=== PATIENT | female | born 1995 | race Caucasian/White ===

== ENCOUNTER 2022-12-30 14:34 | Outpatient (CLI) | payer OTHER, SELFPAY ==
[2022-12-30 18:25] LABS: Hepatitis B Surface Antigen* Negative (Negative)
[2022-12-30 18:36] LABS: HIV 1/2/P24 Combo Screen* Negative (Negative)
[2022-12-30 18:43] LABS: Hepatitis C Virus Antibody* Negative (Negative)
[2022-12-30 20:56] LABS: Chlamydia DNA Amplified* NOT DETECTED (No Detected); GC DNA Amplified* NOT DETECTED (No Detected)
[2023-01-02 02:25] LABS: Rapid Plasma Reagin (RPR) Non Reactive (Non Reactive)
[2023-01-02 02:35] LABS: Varicella-Zoster Virus Ab, IgG 509.9 IV
== END 2022-12-30 14:35 | disposition home or self-care (01) ==
PROVIDERS: Visit Provider Physician Assistant
DX: Z34.91 Encounter for supervision of normal pregnancy, unspecified, first trimester (principal); Z3A.11 11 weeks gestation of pregnancy
CPT/HCPCS: 86592; 86703; 86762; 86787; 86803; 86850; 86900; 86901; 87086; 87340; 87491; 87591

== ENCOUNTER 2023-01-28 16:13 | Outpatient (CLI) | payer OTHER, SELFPAY | END 2023-01-28 16:14 | disposition home or self-care (01) | LOC: NFLDREF 16:14 | PROVIDERS: Visit Provider Obstetrics & Gynecology | DX: Z34.92 Encounter for supervision of normal pregnancy, unspecified, second trimester (principal); Z3A.16 16 weeks gestation of pregnancy | CPT/HCPCS: 85461; J2791 ==

== ENCOUNTER 2023-03-02 12:48 | Outpatient (CLI) | payer OTHER, SELFPAY ==
--- NOTE | 2023-03-02 13:00 | CRLHL7_ITS ---
For Patients: As a result of the Century Cures Act, medical imaging exams and procedure reports are released immediately into your electronic medical record. You may view this report before your referring provider. If you have questions, please contact your health care provider. INDICATION: Evaluate anatomy. COMPARISON: none TECHNIQUE: Real time palacios scale imaging of the fetus was performed as well as color Doppler analysis of the umbilical vessels. FINDINGS: Sonographic imaging demonstrates a single living intrauterine gestation. Fetus demonstrates a regular cardiac rate of 143 beats per minute. Fetus has a cephalic position. The placenta lies anteriorly without evidence of placenta previa. The edge of the placenta is located 5.2 cm from the internal cervical os. Amniotic fluid volume appears normal. Single deepest vertical pocket: 5.1 cm. The cervix is closed and measures 4.0 cm in length. The composite ultrasound gestational age is calculated at 20 weeks 3 days with an estimated sonographic due date of 07/10/2023. The estimated weight is 392 grams which lies at the 61st %. The following biometric measurements were obtained: Biparietal diameter: 5.2 cm/21 weeks 6 days 88th% Head circumference: 19.5 cm/21 weeks 5 days 83rd% Abdominal circumference: 16.0 cm/21 weeks 1 day 56th% Femur length: 3.4 cm/20 weeks 5 days 39th% The HC/AC ratio measures: 1.2 to range (1.06-1.24) On anatomic survey, there is a normal appearance of the cerebral ventricles, cavum septi pellucidi, cisterna magna and cerebellum. The nose, lips, and facial profile appear normal. The cervical, thoracic and lumbar spine are well visualized and appear normal. There is a normal four-chamber heart view and the left and right ventricular outflow tracts appear normal. The diaphragm and stomach appear normal. The kidneys and bladder also appear normal. There is a normal three-vessel cord and eccentric cord insertion site. The four extremities appear normal. IMPRESSION: Concordance of clinical and sonographic dating. No intrinsic abnormalities noted on anatomic survey. Dictated by aHrdy Holm MD @ 03/03/2023 11:45:11 AM (Electronically Signed)
== END 2023-03-02 12:49 | disposition home or self-care (01) ==
LOC: US 12:49
PROVIDERS: Visit Provider Obstetrics & Gynecology
DX: Z34.92 Encounter for supervision of normal pregnancy, unspecified, second trimester (principal); Z3A.20 20 weeks gestation of pregnancy
CPT/HCPCS: 76805

== ENCOUNTER 2023-06-19 13:46 | Outpatient (CLI) | payer OTHER, SELFPAY | END 2023-06-19 13:47 | disposition home or self-care (01) | LOC: NFLDREF 06-22 11:24 | PROVIDERS: Visit Provider Obstetrics & Gynecology | DX: Z34.93 Encounter for supervision of normal pregnancy, unspecified, third trimester (principal); Z3A.36 36 weeks gestation of pregnancy; Z36.85 Encounter for antenatal screening for Streptococcus B | CPT/HCPCS: 87081; 87653 ==

== ENCOUNTER 2023-07-19 15:45 | Inpatient (IN) | payer OTHER, SELFPAY ==
[2023-07-19 12:08] VITALS: BP 126/84; PULSE 88
[2023-07-19 15:50] VITALS: BP 138/85; PULSE 86
--- NOTE | 2023-07-19 16:05 | P.OBHP_ITS ---
OB - H&P: HPI Labor/Induction History of Present Illness Time Seen by Provider: 16:05 Date Seen: 07/19/23 Chief Complaint: The patient is a 28-year-old white female 1 para 0 who presents at 40 and 4 7th weeks gestation by last menstrual. An 8 week ultrasound with complaint of uterine contractions since 2:00 a.m.. Uterine contractions started slowly but now every 2 minutes. Patient denies any spontaneous rupture of membranes. No bloody show. Baby is moving. Patient states that her antepartum course has been totally unremarkable. She is GBS negative. Past medical history: None. Past surgical history: None. Medicines: None. Allergies: None. Social history: No smoke or drink or drugs. Tiny history: No history of STDs. Chief complaint: PAT Appointment Narrative: Ivette Preciado is a 28 year old female Specific Issues/Plans G1 Boy 1. RH neg Rhogam:04/29/23 2. Spotting in first trimester and at 16 weeks. * RhoGam given 01/28/23. 3. Perioral dermatitis with possible flare 16 weeks. * Referral to dermatology * Resolved spontaneously 4. Elevated 1 hr GTT 04/29/23: 164 3 hr GTT 05/05/23: 1 of 4 values elevated, no diabetes PP pap First-trimester ultrasound performed at [facility]'s [place]: [place]-rump length 1.63 cm. heart rate 169. RYAN 07/16/2023 Flu: decline Covid: not vaccinated, declines Tdap: 05/12/23 Meds Home Medications and Allergies Home Medications Medication Instructions Recorded Confirmed Type prenat.vits,radha,hpi-wzrd-nitgs 1 tab PO QDAY 12/30/22 07/17/23 History esomeprazole magnesium 20 mg 20 mg PO QDAY 05/26/23 07/17/23 History capsule,delayed release Allergies Allergy/AdvReac Type Severity Reaction Status Date / Time No Known Allergies Allergy Unknown Verified 07/17/23 13:14 OB - H&P: Exam Physical Exam: Vital signs: Pulse BP 86 138/85 07/19/23 15:50 07/19/23 15:50 Narrative: HEENT: Unremarkable. Lungs: Clear Heart: Positive S1-S2 no S3 or S4 Abdomen: Positive bowel sounds. Soft and nontender. Lower extremities: No edema. Sterile vaginal exam by the nurse. 3 cm, 60% effaced,-3 station heart tones: Rate of 140. Positive accelerations. No decelerations. Good variability. Uterine contractions every 2-3 minutes. Category 1. OB - Problem Based A/P Additional Plan (1) : Status: Acute Plan Assessment: Term intrauterine . Labor. Latent phase. Patient will be admitted.
[2023-07-19 19:37] VITALS: BP 131/76; PULSE 90
[2023-07-19 19:38] VITALS: RESP 18; TEMP 36.9
[2023-07-19 23:47] VITALS: BP 123/82; PULSE 114
[2023-07-19 23:48] VITALS: RESP 18; TEMP 36.7
[2023-07-20] VITALS (101 sets, daily range): BP systolic 93–156; BP diastolic 51–93; PULSE 67–115; RESP 15–18; TEMP 36.5–37.1; O2SAT 92–100
[2023-07-20] MEDS: MORPHINE 10 MG/ML inj IM (00:16)
[2023-07-20] MEDS: hydrOXYzine pamoate 25 MG CAPSULE 100 MG PO (00:18)
[2023-07-20 05:03] LABS: Basophils Percent Auto 0.1 % (0.0-3.0); Hematocrit 35.4 % (33.0-51.0); Hemoglobin* 11.9 gm/dL (12.0-16.0); Immature Granulocytes Pct Auto 1.7 %; Lymphocytes Percent Auto 9.3 % (20-44); Mean Corpuscular HGB Conc 34 gm/dL (32-36); Mean Corpuscular Hemoglobin 31 pg (26-34); Mean Corpuscular Volume 93 fL (80-100); Neutrophils Percent Auto 83.9 % (42.0-72.0); Platelet Count* 222 K/uL (140-440); RDW Coefficient of Variation % 13.7 % (11.5-15.5); Red Blood Count 3.81 m/uL (4.00-5.20); White Blood Count* 18.71 K/uL (4.50-11.00)
[2023-07-20] MEDS: LACTATED RINGERS 1000 ML 1,000 ML IV ×2 (05:05→06:22)
[2023-07-20 05:10] LABS: Slide Review Reflex No
[2023-07-20] MEDS: ROPIVACAINE 0.2% 100 ml 100 ML 12 MG EPIDURAL ×2 (05:37→13:04)
[2023-07-20] MEDS: LIDOCAINE 2% (PF) 5 ML VIAL EPIDURAL ×2 (05:37→14:32)
[2023-07-20] MEDS: PHENYLEPHRINE 100 MCG/ML SYRINGE IVP ×4 (06:12→09:58)
--- NOTE | 2023-07-20 07:06 | PM.ANBPRC ---
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 What is your current living situation?: I presently have a place to live Problems where you live: no known problems In the past 12 months, utilities in danger of being shut off: no In the past 12 mos, have been you worried that your food would run out before you had money to buy more?: never true In the past 12 mos, the food you bought just didn't last and you didn't have money to buy more?: never true Smoking Status: Never smoker How often does anyone, including family, friends and others, physically hurt you: never How often does anyone, including family, friends and others, insult or talk down to you: never How often does anyone, including family, friends and others, threaten you with harm: never How often does anyone, including family, friends and others, scream or curse at you: never Little interest or pleasure in doing things: not at all Feeling down, depressed, or hopeless: not at all Meds Home Medications and Allergies Home Medications Medication Instructions Recorded Confirmed Type prenat.vits,radha,exu-samu-dhrxm 1 tab PO QDAY 12/30/22 07/20/23 History esomeprazole magnesium 20 mg 20 mg PO QDAY 05/26/23 07/20/23 History capsule,delayed release Allergies Allergy/AdvReac Type Severity Reaction Status Date / Time No Known Allergies Allergy Unknown Verified 07/17/23 13:14 Results Labs Labs: Laboratory Results - last 24 hr 07/20/23 04:47 WBC 18.71 H RBC 3.81 L Hgb 11.9 L Hct 35.4 MCV 93 MCH 31 MCHC 34 RDW Coeff of [place] 13.7 Plt Count 222 Neut % (Auto) 83.9 H Lymph % (Auto) 9.3 L [place] % (Auto) 5.0 Eos % (Auto) 0.0 Baso % (Auto) 0.1 Neut # (Auto) 15.70 H Lymph # (Auto) 1.70 [place] # (Auto) 0.90 Eos # (Auto) 0.00 Baso # (Auto) 0.00 Abs Immat Gran (auto) 0.30 Imm/Tot Granulo (auto) 1.7 Blood Type O Negative Antibody Screen POSITIVE Vital Signs Vital Signs: Last Vital Signs Temp 98.1 F 07/19/23 23:48 Pulse 80 07/20/23 07:02 Resp 18 07/19/23 23:48 BP 93/52 L 07/20/23 07:02 Pulse Ox 98 07/20/23 06:07 Weight: 81.193 kg Anesthesia Procedures Epidural Insertion Patient Location: OB Start Time: 05:00 Stop Time: 06:00 Start Date: 07/20/23 Stop Date: 07/20/23 Reason for Block: procedure for pain Patient Position: sitting Performed By: Darline Serna Preanesthetic Checklist: IV checked, risks and benefits discussed, monitors and equipment checked, pre-op evaluation, timeout performed and anesthesia consent Prep: chlorhexidine gluconate Monitoring: blood pressure monitoring, continuous pulse oximetry and heart rate Approach: midline Vertebral Space: lumbar (1-5) Epidural Technique: INNA saline Needle Type: Tuohy needle Injection Technique: continuous catheter (continuous catheter) Needle gauge: 17 Needle Length (cm): 10 cm Needle Insertion Depth (cm): 6 Catheter Gauge: 19 Catheter Type: multi-orifice Catheter at skin depth (cm): 15 Test Dose Result: negative and lidocaine 1.5% with epinephrine 1 to 200,000
[2023-07-20] MEDS: LACTATED RINGERS 1000 ML 1,000 ML 125 ML IV (10:45)
[2023-07-20] MEDS: LACTATED RINGERS 1000 ML 1,000 ML 325 ML IV (13:02)
--- NOTE | 2023-07-20 14:24 | PM.OBPNL ---
Subjective Time Seen by Provider: 14:24 Date Seen: 07/20/23 Narrative: The patient is uncomfortable, having lots of pain in LLQ with contractions. Objective Vital Signs: Last Vital Signs Temp 97.8 F 07/20/23 12:33 Pulse 96 07/20/23 14:16 Resp 17 07/20/23 12:33 BP 116/71 07/20/23 14:16 Pulse Ox 94 07/20/23 14:10 Pelvic Exam Dilation (cm): 8 Effacement (%): 95 Station: 0 Contractions Monitor mode: External Contraction Frequency: 1-5 minutes Contraction pattern: Irregular Contraction intensity: Strong/Firm Assessment Assessment: active labor Station: 0 (LOP position) Amniotic Membrane Status: SROM Status: Category l Heart Rate Baseline: 125 Custodial Variability: Moderate (6-25) Monitor Accelerations: Present Monitor Decelerations: None Plan Plan: Will have FELT WASHING MACHINE TENDER assess epidural to see it we can get her more comfortable. Position changes to help fetus rotate.
[2023-07-20] MEDS: OXYTOCIN 30 unit/500 ML in NS 30 UNIT/500 ML BAG 300 UNIT IVPB (19:15)
[2023-07-20] MEDS: LIDOCAINE 1 % PF 30 ML INJECTION (19:37)
--- NOTE | 2023-07-20 20:01 | W.PM.VAGDE_ITS ---
OB Procedure Vag Delivery Mother Details Mother Details: The patient is a 28 year-old, 1, Para 0, admitted on 07/19/23 at 40 4/7 weeks gestation. : 1 Para: 0 Weeks Gestation: 40.5 Admission Date: 07/19/23 Additional Details Amniotic Membrane Status: SROM Amniotic Membrane Rupture Date: 07/20/23 Amniotic Membrane Rupture Time: 12:20 Amniotic Membrane Fluid Description: Clear Analgesia/Anesthesia Type: Epidural Waterbirth: No [place]: No Intrapartal Events: None Labor Onset: 04:20 Complete: 16:21 Pushin:25 Heart: heart tones during second stage were category 1 and 2. Delivery Details Delivery Date: 07/20/23 Delivery Time: 19:13 Route of delivery: Infant Gender: Male Infant Viability: Alive; Heart Rate Present Position at Delivery: OA Delivery Details: Delivered over intact perineum via spontaneous vaginal delivery. was placed on maternal abdomen.? Cord was clamped and cut after a 30-60 second delay. Nose and mouth were bulb suctioned.? weight pending. 1 Minute Interval Total Score: 7 5 Minute Interval Total Score: 9 Additional Details Shoulder Dystocia: No Placenta Delivery Time: 19:18 Placental Delivery Description: Spontaneous Delivery repair: Chromic Procedure Done: Global Blood Loss: 240 Laceration: Vaginal - 2nd Degree (w/ left labial extension, also right p eriurethral 1st degree) Blood Loss Measurement Type: QBL Bakri Used: No Sponge/Need Count Correct: Yes Cord Vessel Description: 3 Vessels Event Summary Status: Mother and infant were stable after delivery. Disposition: floor
[2023-07-21 03:50] VITALS: BP 105/69; RESP 16; TEMP 36.6
[2023-07-21 07:30] LABS: Hemoglobin* 10.1 gm/dL (12.0-16.0)
[2023-07-21 07:46] VITALS: BP 107/70; PULSE 80; RESP 17; TEMP 37.1; O2SAT 98
[2023-07-21] MEDS: DOCUSATE SODIUM 100 MG CAPSULE PO (09:40)
[2023-07-21 12:53] VITALS: BP 121/80; PULSE 88; RESP 16; TEMP 36.8; O2SAT 98
[2023-07-21 17:00] VITALS: BP 116/78; PULSE 82; RESP 16; TEMP 37.1; O2SAT 97
[2023-07-21] MEDS: IBUPROFEN 600 MG TABLET PO (17:05)
--- NOTE | 2023-07-21 21:25 | PM.OBPNVD1 ---
OB - PN:Subj Subjective Time Seen by Provider: 09:00 Date Seen: 07/21/23 Patient comments OB post-: no complaints [place] status: Narrative: Feels well. Bleeding normal. Urinating. Breast feeding. OB - PN: Obj Exam Physical Exam: Vital signs: Temp Pulse Resp BP Pulse Ox O2 Del Method 98.7 F 82 16 116/78 97 Room Air 07/21/23 17:00 07/21/23 17:00 07/21/23 17:00 07/21/23 17:00 07/21/23 17:00 07/21/23 17:00 Constitutional: Constitutional: no acute distress and cooperative Routine Respiratory Exam: Respiratory: Absent respiratory distress Routine Cardiovascular Exam: Cardiovascular: Present RRR Routine Abdominal Exam: Abdominal: Present soft; Absent tenderness Fundus: Present firm Routine Neurological Exam: Neurological: Present alert and oriented X3 Routine Psychiatric Exam: Psychiatric: Present normal affect OB - PN: Obj Data Labs Labs: Laboratory Results - last 24 hr 07/21/23 07:14 Hgb 10.1 L OB - PN: A/P Delivery Assessment and Plan (1) Status post normal vaginal delivery: Status: Acute Plan day: 1 Plan: routine care
[2023-07-22 00:28] VITALS: BP 121/84; PULSE 89; RESP 18; TEMP 36.3; O2SAT 99
[2023-07-22] MEDS: IBUPROFEN 600 MG TABLET PO (06:49)
--- NOTE | 2023-07-22 08:10 | PM.OBDSVD1 ---
DS: Providers Provider Time Seen by Provider: 08:11 Date Seen: 07/22/23 Date of admission: 07/19/23 15:45 Primary care physician: Not a Local Provider Admitting Clinician: Maxim Hagan MD Attending Physician on discharge: Maxim Hagan MD Date of Discharge: 07/22/23 DS: Diagnosis Discharge Diagnosis (1) Status post normal vaginal delivery: Status: Acute Exam Narrative: Exam Narrative: VSS, afebrile GENERAL APPEARANCE: ?normal affect, alert, no distress MOOD: ?appropriate HEENT: normocephalic, neck supple, full ROM CHEST: ?Symmetrical chest wall movement. ?Normal respiratory effort. ?Clear to auscultation HEART: ?regular rate and rhythm ABDOMEN: ?soft, non-tender. Uterine fundus is firm, 1 above Umbilicus, Midline and is appropriate for the stage of recovery. ?Bowel sounds present. PERINEUM: ?mild edema of the perineum, there is a 2nd degree laceration that is healing well. EXTREMITIES: ?normal and trace edema Const: Vital Signs, click to edit/add: Vital Signs - 24 hr 07/21/23 12:53 07/21/23 17:00 07/22/23 00:28 Temperature 98.2 F 98.7 F 97.4 F L Pulse Rate [Right Pulse Oximeter] 88 82 89 Respiratory Rate 16 16 18 Blood Pressure [Ri ght Arm] 121/80 116/78 121/84 Pulse Oximetry 98 97 99 Oxygen Delivery Me thod Room Air Room Air Room Air Documenting provider has reviewed patient's vital signs: yes OB - DS: Summary Hospital Course Hospital Course: Butch is a 28 y.o. G 1 P 1 who was admitted to [facility] for labor. ?She had an uncomplicated NVD The patient feels well. ?The pain is well controlled with current medications. ?She has no new complaints. ?She is breast feeding and reports things are going well.? the patient has done well.? Vitals have been stable.? She has remained afebrile.? Has a good appetite, is tolerating a general diet. ?She is voiding without difficulty.? She is passing gas and has had a bowel movement.? She is ambulating and denies any dizziness.? Has Small amount of rubra lochia. She is planning NFP for prevention. Problems: none plan: Discharge home with baby. Follow up in 2 weeks and 6 weeks. , may follow up with if needed Infant Gender: Male Infant Discharge Plan: Home Status at Discharge Functional status at discharge: independent ambulation Overall status at discharge: patient is progressing back to baseline Time Spent with Patient Time attestation: Total time spent providing and/or coordinating discharge services: Time spent: Less than 30 minutes Discharge Plan Discharge Disposition: Home, Self-Care Date of Admission: 07/19/23 15:45 Attending Provider on Discharge: Jewell William Primary Care Provider: Provider,Not a Local Condition: Stable Anticipated Discharge Date/Time: 07/22/23 11:00 Discharge Medications: New docusate sodium 100 mg Capsule 100 mg PO BID PRNQty: 100 0RF Rx Instructions: Take 1 cap 1-2 times a day as needed for constipation ibuprofen 600 mg Tablet 600 mg PO Q6H PRNQty: 60 0RF Continued prenat.vits,radha,gxi-wxqp-mzwys Tablet 1 tab PO QDAY esomeprazole magnesium 20 mg capsule,delayed release(DR/EC) 20 mg PO QDAY Discharge Orders: Discharge Order (Routine); Ordered 07/22/23 Ordered By: Jewell William Patient Education: OB Over the Counter Medication Information, OB Vaginal/Breast Feeding Activity Level: Activity as Tolerated Discharge Diet: Regular Follow Up Appointments: Provider,Not a Local [Primary Care Provider] - Forms: [employer] Info Instructions
[2023-07-22 08:15] VITALS: BP 125/83; PULSE 76; RESP 14; TEMP 36.6; O2SAT 98
[2023-07-22] MEDS: DOCUSATE SODIUM 100 MG CAPSULE PO (08:46)
== END 2023-07-22 12:17 | disposition home or self-care (01) | DRG 807 ==
LOC: OB OUT 15:47 → OB 15:47
PROVIDERS: Obstetrics & Gynecology; Admitting Provider Specialist; Visit Provider Specialist
DX: O70.1 Second degree perineal laceration during delivery (principal); Z37.0 Single live birth; Z3A.40 40 weeks gestation of pregnancy
CPT/HCPCS: 1967; 36415; 85018; 85025; 86850; 86870; 86880; 86900; 86901; A9270; J2001; J2270; J2371; J2795; J7120

== ENCOUNTER 2023-09-11 14:04 | Outpatient (CLI) | payer OTHER, SELFPAY ==
--- NOTE | 2023-09-11 17:00 | P.LACCB_ITS ---
Consult Note - Mom Date of Visit Date of visit: 10/12/23 data communications software consultant: Trisha Atkins Visit Code: Visit Patient's Information Phone number: [phone] : 1 Para: 1 Allergies No Known Allergies Allergy (Unknown, Verified 09/03/23 09:20) Work Plans: Returns to work in November Delivery Information Delivery type: Vaginal Weeks Gestation: 40.5 Gestational Age: AGA Weight: 3.57 kg Discharge Weight: 3.462 kg Baby's Information Baby's Age at Visit: 7 weeks Baby's Provider or Clinic: Dr. Collier Reason for Consult Reason for Consult: recent difficulty with nursing Past Experience Past Experience: No Current Frequency of Day Feedings: normally every 2 - 3 hours Frequency of Night Feedings: normally every 4 - 5 hours Both Breasts: Yes Suck: fairly strong Latch: fairly wide Length of Time: usually 15 - 20 minutes Pumping Pumping: Yes (on occasion) Quantity Pumped: 3 - 4 oz total Supplementing EMB Supplement: No Formula Supplement: No Baby Elimination Number of Wet Diapers a Day: about 6/day Number of BM a Day: 1 - 2/day, recently more green in color Breast/Nipple Condition Breast Information: WNL Maternal Nipple Condition - Left: Common Nipple Maternal Nipple Condition - Right: Common Nipple Onsite Pre-Feed weight: 5.218 kg Post-Feed weight: 5.41 kg Milk Transferred (mL): 192 Assessments/Interventions Assessments/Interventions: Met with mom and this now 7 week old ex- term AGA baby for consult. Mom reports she's exclusively and normally baby nurses every 2 - 3 hours during the day and every 4 - 5 hours overnight. She offers both sides and the sessions last 15 - 20 minutes. She reports that over the past few weeks he's had a few instances where he pops off and on the breast crying and seems to be frustrated; sometimes she thinks he's swallowing a lot of air. Earlier this week he developed a stuffy nose and that has also made nursing more difficult. She reports that last night he didn't nurse from 11 pm until 8 am and the few times he's nursed since then haven't been good feedings. She's only pumping on occasion but gets 3 - 4 oz total each time. Baby has not been introduced to a bottle yet. Breasts WNL- symmetrical with rounded lower quadrants, intramammary distance < 1.5 inches. Nipples are somewhat short but everted and don't flatten or retract on compression; no damage noted. Baby has gained 16 grams/day since his last visit with PCP on 08/26/23. Mom denies any caput/cephalohematoma at delivery. States baby has equal ROM when turning his head and moving his extremities. His palate is a little elevated. The upper frenulum is tight- lip is difficult to flange and mom reports hx of a suck blister to his upper lip. He has a fairly strong suck on a finger and his tongue consistently extends past the gum line. There's some canoeing when the tongue moves laterally. He doesn't raise his tongue at all when crying and it was hard to lift it enough to get a look at the lower frenulum. He's very congested, T = 99.8 axillary (1 degree was added). Mom attempted to latch baby to the left side and he would latch but then come off and it seemed to be d/t difficulty breathing. Mom expressed some milk into his nose and was able to suction out some dried mucous. He continued to have difficulty so she tried to bait and switch him with his pacifier and finally gave him about 15 ml of EBM in a bottle. He eventually settled and took the breast, latch appeared fairly wide and mom was comfortable. He nursed about 15 minutes before getting sleepy. Mom offered the right side and after fighting her a little, she latched him and he nursed about 10 minutes. When he was weighed he had transferred 192 ml (6.4 oz)! Plan: 1. Continue to nurse baby ALD. Suspect the difficulty with nursing this week is probably d/t his congestion. Encouraged mom to continue with humidifier, steam in bathroom, bulb suction after moistening his nasal passages (instructed her not to do this too often as this can cause swelling). She seems to have somewhat of an initial fast flow so gave ideas to help with this as well. 2. If he's really struggling to latch it's ok to give him a little from a bottle to calm him or if necessary, can make that feeding a bottle feeding. Suggested once he's feeling better and nursing better to have dad give a bottle every few days so he doesn't forget how to take it. 3. Will f/u at [facility] to assess lower frenulum and to see how the weekend went. 4. Reviewed s/s of worsening illness and when to call clinic/go to Urgent Care. Meds Home Medications and Allergies Home Medications Medication Instructions Recorded Confirmed Type prenat.vits,radha,lxl-fslv-dmcge 1 tab PO QDAY 12/30/22 09/03/23 History Allergies Allergy/AdvReac Type Severity Reaction Status Date / Time No Known Allergies Allergy Unknown Verified 09/03/23 09:20
== END 2023-09-11 14:05 | disposition home or self-care (01) ==
LOC: OB LAC 14:05
PROVIDERS: PCP Physician Assistant; Visit Provider Physician Assistant
DX: Z39.1 Encounter for care and examination of lactating mother (principal)
CPT/HCPCS: 99211

== ENCOUNTER 2023-09-15 10:30 | Outpatient (RCR) | payer OTHER, SELFPAY | END 2024-01-13 23:59 | disposition home or self-care (01) | PROVIDERS: PCP Advanced Practice Midwife; Visit Provider Advanced Practice Midwife | DX: Z39.2 Encounter for routine postpartum follow-up (principal); R53.1 Weakness; M25.69 Stiffness of other specified joint, not elsewhere classified; M54.50 Low back pain, unspecified; M53.3 Sacrococcygeal disorders, not elsewhere classified; N39.3 Stress incontinence (female) (male); Z51.89 Encounter for other specified aftercare | CPT/HCPCS: 97110; 97140; 97162; 97535 ==

== ENCOUNTER 2025-02-28 10:36 | Outpatient (CLI) | payer OTHER, SELFPAY ==
--- NOTE | 2025-02-28 10:45 | CRLHL7_ITS ---
For Patients: As a result of the Cures Act, medical imaging exams and procedure reports are released immediately into your electronic medical record. You may view this report before your referring provider. If you have questions, please contact your health care provider. OB ULTRASOUND FIRST TRIMESTER INDICATION: Dating and viability. TECHNIQUE: Real time palacios scale imaging of the fetus was performed. transvaginal. LMP: 12/26/2024. RYAN by LMP: 10/02/2025. Previous US: No. CRL: 2.6 cm. 9 w 2 d. RYAN: 10/01/2025. FHR: 176 BPM. Gestational sac: 3.6 cm. Appears within normal limits. Yolk sac: 3.9 mm. Appears within normal limits. Right ovary: Within normal limits. 2.8 x 1.4 x 2.1 cm. Left ovary: Within normal limits. 3.6 x 2.5 x 2.5 cm. CL. IMPRESSION: 1. Single living intrauterine measuring 9 weeks 2 days and sonographic due date 10/01/2025. 2. Subchorionic hemorrhage measures 2.7 x 1.8 x 1.0 cm. Hardy Holm M.D. Diagnostic Radiologist [email or web address] WINDY/gwen JR/Dictated by: Hardy Holm MD @ 03/01/2025 6:21:00 AM (Electronically Signed)
== END 2025-02-28 10:37 | disposition home or self-care (01) ==
LOC: US 10:37
PROVIDERS: PCP Physician Assistant; Visit Provider Advanced Practice Midwife
DX: Z34.91 Encounter for supervision of normal pregnancy, unspecified, first trimester (principal); O20.9 Hemorrhage in early pregnancy, unspecified; Z3A.09 9 weeks gestation of pregnancy
CPT/HCPCS: 76817; 83021; 86703; 86706; 86803; 86850; 86900; 86901; 87086; 87340; 87491; 87591

== ENCOUNTER 2025-02-28 12:04 | Outpatient (CLI) | payer OTHER, SELFPAY ==
[2025-02-28 16:00] LABS: Chlamydia DNA Amplified* NOT DETECTED (No Detected); GC DNA Amplified* NOT DETECTED (No Detected)
== END 2025-02-28 12:05 | disposition home or self-care (01) ==
PROVIDERS: PCP Physician Assistant; Visit Provider Registered Nurse
DX: Z34.81 Encounter for supervision of other normal pregnancy, first trimester (principal)
CPT/HCPCS: 83020; 83021; 85660; 86592; 86703; 86704; 86706; 86762; 86787; 86803; 86850; 86900; 86901; 87086; 87340; 87491; 87591

== ENCOUNTER 2025-05-16 12:08 | Outpatient (CLI) | payer OTHER, SELFPAY ==
--- NOTE | 2025-05-16 12:15 | CRLHL7_ITS ---
For Patients: As a result of the Century Cures Act, medical imaging exams and procedure reports are released immediately into your electronic medical record. You may view this report before your referring provider. If you have questions, please contact your health care provider. OBSTETRICAL ULTRASOUND ??? ANATOMY SURVEY, 05/16/2025 INDICATION: Supervision of normal . anatomy survey. CLINICAL HISTORY: LMP: 12/26/2024 RYAN by LMP: 10/02/2025 Gestational age: 20 weeks 1 day TECHNIQUE: Real-time palacios-scale transabdominal imaging of the fetus was performed. PREVIOUS ULTRASOUND: 02/28/2025 FINDINGS: position: Vertex Cervix: Visualized Technique: Transabdominal Length of closed cervix: 4.3 cm Placenta position: Anterior Technique: Transabdominal Placenta tip to internal os: 4.7 cm Umbilical cord: 3-vessel cord Placental insertion: Central Amniotic fluid: 5.3 cm SDP (greater than/equal to 2 to less than 8 cm) ANATOMY SURVEY: Observed Structures Cerebellum: Yes; 2.1 cm, 20 weeks 6 days Cisterna magna: Yes; 3.0 mm Nuchal fold: Yes; 5.2 mm Lateral ventricle: Yes; 6.1 mm CSP: Yes Midline falx: Yes Choroid plexus: Yes Spine: Yes Stomach: Yes Abdominal cord insert: Yes Urinary bladder: Yes Kidneys: Yes Diaphragm: Yes Nose/lips: Yes Orbital view: Yes Profile: Yes Upper extremities: Yes Lower extremities: Yes Hands: Yes Feet: Yes 4-chamber heart: Yes LVOT: Yes RVOT: Yes 3VV: Yes 3VTV: Yes BIOMETRY BPD: 4.7 cm, 20 weeks 2 days, 58% HC: 18.0 cm, 20 weeks 3 days, 56% AC: 15.3 cm, 20 weeks 3 days, 56% FL: 3.3 cm, 20 weeks 2 days, 49% FL/AC: 21.60% HC/AC ratio: 1.18 heart rate: 139 bpm age by this ultrasound: 20 weeks 3 days RYAN by this ultrasound: 09/30/2025 Estimated weight: 352.0 grams (0 pounds 12 ounces) Percentile by RYAN: 61% IMPRESSION: Normal anatomic survey. Concordance of clinical and sonographic dating. HARDY CANNON M.D. Diagnostic Radiologist [email or web address] Transcribed: 4:[address]/Dictated by: Hardy Cannon MD @ 05/16/2025 3:47:00 PM (Electronically Signed)
== END 2025-05-16 12:09 | disposition home or self-care (01) ==
LOC: US 12:09
PROVIDERS: PCP Physician Assistant; Visit Provider Obstetrics & Gynecology
DX: Z34.92 Encounter for supervision of normal pregnancy, unspecified, second trimester (principal); Z3A.20 20 weeks gestation of pregnancy
CPT/HCPCS: 76805

== ENCOUNTER 2025-07-10 10:04 | Outpatient (CLI) | payer OTHER, SELFPAY | END 2025-07-10 10:05 | disposition home or self-care (01) | LOC: NFLDREF 10:05 | PROVIDERS: PCP Physician Assistant; Visit Provider Obstetrics & Gynecology | DX: O98.813 Other maternal infectious and parasitic diseases complicating pregnancy, third trimester (principal); N89.8 Other specified noninflammatory disorders of vagina; Z3A.28 28 weeks gestation of pregnancy | CPT/HCPCS: 86592; 86850; J2791 ==

== ENCOUNTER 2025-09-05 08:41 | Outpatient (CLI) | payer OTHER, SELFPAY ==
[2025-09-06 11:16] LABS: Strep B DNA Probe Negative (Negative)
[2025-09-06 11:28] LABS: Strep B Susceptibility Needed? No
== END 2025-09-05 08:42 | disposition home or self-care (01) ==
LOC: NFLDREF 08:41
PROVIDERS: PCP Physician Assistant; Visit Provider Obstetrics & Gynecology
DX: Z34.93 Encounter for supervision of normal pregnancy, unspecified, third trimester (principal)
CPT/HCPCS: 87081; 87653

== ENCOUNTER 2025-09-14 13:42 | Outpatient (CLI) | payer OTHER, SELFPAY ==
--- NOTE | 2025-09-14 14:00 | CRLHL7_ITS ---
For Patients: As a result of the Cures Act, medical imaging exams and procedure reports are released immediately into your electronic medical record. You may view this report before your referring provider. If you have questions, please contact your health care provider. OB ULTRASOUND FOLLOW-UP CLINICAL HISTORY: Growth, measuring small for dates. TECHNIQUE: Real time palacios scale imaging of the fetus was performed. Transabdominal imaging performed. COMPARISON: 02/28/2025. FINDINGS: RYAN by LMP: 10/02/2025. GA: 37 weeks 3 days. Cervix: Not visualized. Positioning: Vertex. Amniotic Fluid: 3.6 cm SDP. Placenta: Technique: TA. Placenta Position: Anterior. Dopplers: Heart Rate: 142 bpm. BIOMETRY BPD: 8.95 cm, 36 weeks 2 days. 34.8% HC: 31.9 cm, 35 weeks 6 days. 4.9% AC: 31.91 cm, 35 weeks 6 days. 21.3% FL: 6.91 cm, 35 weeks 3 days. 9.2% FL/AC Ratio: 21.65% HC/AC Ratio: 1.0. EFW: 2768 grams, 6 lb 2 oz. Age by this US: 35 weeks 6 days. RYAN by this US: 10/13/2025. Percentile by RYAN: 18.8% IMPRESSION: 1. Sonographic gestational age 35 weeks 6 days and sonographic due date 10/13/2025. Sonographic age is 11 days behind the clinical age. 2. Estimated weight 19th percentile. Abdominal circumference 21st percentile. Head circumference 5th percentile. Hardy Holm M.D. Diagnostic Radiologist [email or web address] Transcribed: 9:03 am DW/Dictated by: Hardy Holm MD @ 09/17/2025 10:35:00 PM (Electronically Signed)
== END 2025-09-14 13:43 | disposition home or self-care (01) ==
LOC: US 13:43
PROVIDERS: Visit Provider Obstetrics & Gynecology
DX: O36.5930 Maternal care for other known or suspected poor fetal growth, third trimester, not applicable or unspecified (principal); Z3A.37 37 weeks gestation of pregnancy
CPT/HCPCS: 76816

== ENCOUNTER 2025-09-20 03:56 | Inpatient (IN) | payer OTHER, SELFPAY ==
[2025-09-19 23:54] VITALS: RESP 16; TEMP 36.6
[2025-09-19 23:55] VITALS: BP 125/73; PULSE 113
[2025-09-20] VITALS (12 sets, daily range): BP systolic 89–120; BP diastolic 41–77; PULSE 99–112; RESP 16–18; TEMP 36.6–37.1; O2SAT 97–98; BMI 32.1
[2025-09-20] MEDS: LIDOCAINE 1 % PF 30 ML INJECTION (04:19)
--- NOTE | 2025-09-20 04:20 | W.PM.OBVAGDE ---
OB Procedure Vag Delivery Mother Details Mother Details: The patient is a 30 year-old, 2, now Para 2, admitted on 09/20/25 at 38.2 gestation. : 2 Para: 2 Weeks Gestation: 38.2 Admission Date: 09/20/25 Additional Details Amniotic Membrane Status: SROM Amniotic Membrane Rupture Date: 09/20/25 Amniotic Membrane Fluid Description: Clear Analgesia/Anesthesia Type: None Waterbirth: No Pitcoin: Yes ([facility] only) Intrapartal Events: Precipitous Labor <3 Hrs Heart: heart tones during second stage were not auscultated during 2nd stage, due to precipitous status. Delivery Details Delivery Date: 09/20/25 Delivery Time: 04:02 Route of delivery: Infant Gender: Female Viability: Alive; Heart Rate Present Delivery Details: Patient was in triage for rule out labor and progressed quickly to complete. CNM was called for precipitous delivery and MD was not yet in house. SROM occurred just before delivery. Patient was assumed complete with involuntarily pushing at 0355. of a viable female at 0402 while standing/leaning over partner in the triage bathroom. Vertex delivered OA. No nuchal cord or shoulder. Body delivered easily and without incident. Infant passed to mothers abdomen with a vigorous cry. Cord was clamped and cut at > 5 minutes. APGARS were 8 at one minute and 9 at five minutes respectively. Mouth was bulb suctioned. Intact placenta with a 3 vessel cord delivered spontaneously at 0410. Fundus firm. Dr. Miller assumed care after delivery of placenta. Addendum by Dr. Miller - I arrived as placenta was delivering. Baby crying on maternal chest. Placenta examined and noted to be complete with 3 vessel cord. Placenta was sent to pathology. The cervix and vagina were inspected for lacerations. Laceration(s): Left labial tear, repaired with 2-0 vicryl in a continuos manner. Complications: None Estimated blood loss: 100 cc Sponge and needles counts are correct. Mother and were stable at the time of this note. 1 Minute Interval Total Score: 8 5 Minute Interval Total Score: 9 Additional Details Shoulder Dystocia: No Placenta Delivery Time: 04:10 Placental Delivery Description: Spontaneous Procedure Done: Global Blood Loss: 240 Laceration: Labial (Left labia ) Blood Loss Measurement Type: EBL Bakri Used: No Event Summary Status: Mother and infant were stable after delivery. Disposition: floor
--- NOTE | 2025-09-20 04:32 | P.LDBA_ITS ---
Subjective History of Present Illness Date Seen: 09/20/25 Narrative: Patient is being admitted to Labor and Delivery for spontaneous labor. She is a 30 year old at weeks gestation. Her full history and physical was dictated by Dr. Hendricks on 09/13/25. Please see this for details. Patient was reported have mild intermittent contractions. Denies LOF, vaginal bleeding or abnormal vaginal discharge. Notified at 0149 that patient changed from 2.5/50/-2 to 3.5/60/-2 after an hour but keisha irregularly and in minimal discomfort. Patient comfortable with going home with expectant management as her previous labor was 43 hours. Advised patient to do an additional 2 hours of observation and another recheck. I was notified at 0352 that patient was delivering precipitously in triage. 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 Specific Issues/Plans G 2 P 1001 : Elijah # Rh negative Rhogam given: 07/10/25 # Hep B non immune - low risk, declines vaccine H&P: 09/13/[address] Hendricks Imagin05/16/2025: 20 weeks, 1 day. Cephalic, anterior placenta without previa, three- vessel cord, SDP 5.3 cm, normal anatomy, EFW 61%, AC 56%, all growth parameters within normal ranges. 09/15/25: EFW 2768 g or 6 lb 2 oz (19%), BPD 35%, HC 5%, AC 21%, FL 9%, SDP 3.6 cm, vertex. Vaccinations: Flu: Recommended. Declined. Covid: Recommended. Declined. Tdap: done 08/08/25 RSV: declined at 32 weeks 32 week mental health: 08/08/25 Last pap: August 2023, normal OB - Problem Based A/P Additional Plan (1) Spontaneous onset of labor: Status: Acute (2) Rh negative state in antepartum period: Status: Acute OB Exam Physical Exam Vital signs: Temp Pulse Resp BP 97.9 F 112 H 16 114/70 09/19/25 23:54 09/20/25 04:24 09/19/25 23:54 09/20/25 04:24
[2025-09-21 00:45] VITALS: BP 100/68; PULSE 99; RESP 18; TEMP 36.8; O2SAT 97
[2025-09-21 04:13] VITALS: BP 97/68; PULSE 90; RESP 16; TEMP 36.4; O2SAT 98
[2025-09-21 06:56] LABS: Hemoglobin* 10.7 gm/dL (12.0-16.0)
--- NOTE | 2025-09-21 07:52 | P.DS_ITS ---
DS: Providers Provider Date Seen: 09/21/25 Date of admission: 09/20/25 03:56 Primary care physician: Not a Local Provider Admitting Clinician: Vashti Byrd CNM Attending Physician on discharge: Janey Miller MD Date of Discharge: 09/21/25 DS: Diagnosis Discharge Diagnosis (1) Spontaneous onset of labor: Status: Acute (2) Lactating mother: Status: Acute (3) care following vaginal delivery: Status: Acute Exam Narrative: Exam Narrative: GENERAL APPEARANCE:? normal affect, alert, no distress? MOOD:? appropriate? CHEST:? clear to auscultation and percussion? HEART:? regular rate and rhythm? BREASTS: soft, nontender, no erythema, nipples sore but intact? ABDOMEN:? soft, non-tender the uterine fundus is U/1 and is appropriate for the stage of recovery.? PERINEUM:? mild edema of the perineum, there is a labial laceration that is healing well.? EXTREMITIES:? normal and no edema? Const: Vital Signs, click to edit/add: Vital Signs - 24 hr 09/20/25 08:15 09/20/25 12:51 09/20/25 15:20 Temperature 97.8 F 98.7 F Pulse Rate [Pulse Oximeter] 110 H 99 100 Respiratory Rate 16 16 18 Blood Pressure [Ri ght Arm] 116/74 108/76 111/76 Pulse Oximetry 97 98 98 Oxygen Delivery Me thod Room Air Room Air Room Air 09/20/25 19:00 09/21/25 00:45 09/21/25 04:13 Temperature 98.4 F 98.3 F 97.6 F Pulse Rate [Pulse Oximeter] 100 99 90 Respiratory Rate 18 18 16 Blood Pressure [Ri ght Arm] 115/77 100/68 97/68 Pulse Oximetry 98 97 98 Oxygen Delivery Me thod Room Air Room Air Room Air Documenting provider has reviewed patient's vital signs: yes OB - DS: Summary Hospital Course Hospital Course: Ivette is a 30 year old G 2 P 2 at 38.2 weeks gestation that was admitted to the Center on 09/20/25 for spontaneous labor. She had an uncomplicated vaginal delivery. She delivered a viable female . She is breast feeding and feels it is going ok. Discussed seeing before and after discharge and [facility] baby talk classes with support. the patient has done well. Her pain is well controlled with current medications.? She has no new complaints.? Urinary output is adequate and she is voiding without difficulty.? Has a good appetite, is tolerating a general diet, is passing flatus, and has not had a bowel movement.? Has scant amount of rubra lochia.? She is ambulating well. She will need rhogam before discharge. Peripartum Data Laceration description: Labial Episiotomy description: None complications: none [place] Gender: Female Discharge Plan: Home Status at Discharge Functional status at discharge: independent ambulation Overall status at discharge: patient is progressing back to baseline Time Spent with Patient Time attestation: Total time spent providing and/or coordinating discharge services: Discharge Plan Discharge Disposition: Home, Self-Care Date of Admission: 09/20/25 03:56 Attending Provider on Discharge: Cathie Sanford Primary Care Provider: Provider,Not a Local Condition: Stable Anticipated Discharge Date/Time: 09/21/25 11:00 Discharge Medications: New docusate sodium 100 mg Capsule 100 mg PO DAILY Qty: 100 0RF Rx Instructions: Take 1-2 tablets daily as needed for constipation. ibuprofen 600 mg Tablet 600 mg PO Q6H PRNQty: 60 0RF Continued DHA 200 mg capsule 200 mg PO DAILY calcium carbonate [Tums] 200 mg calcium (500 mg) tablet,chewable 200 mg PO BID Discharge Orders: Discharge Order (Routine); Ordered 09/21/25 Ordered By: Cathie Sanford Patient Education: OB Vaginal/Breast Feeding Additional Instructions: Discharge instructions were reviewed with the patient including signs and symptoms of infection and home going medications Nothing vaginally for 6 weeks: no tampons or intercourse Do not drive while taking narcotic pain medication(s) Off Work or School for 8 weeks Symptoms to report to doctor: * Bleeding that saturates more than one pad per hour * Passing clots larger than the size of a golf ball * Pain not relieved by prescribed medication * Fever above 100.4 degrees Fahrenheit * A foul vaginal odor * Difficulty in emotions, mood, and functions * Thoughts of hurting yourself and/or * Painful, reddened area in your breast * Any drainage, redness, or tenderness in your IV/epidural site * Severe headache that doesn't improve after taking medications * Changes in vision, including temporary loss of vision, blurred vision, and/or light sensitivity * Upper abdominal pain (usually under ribs on the right side) * Decrease in urination or painful, frequent urinating * Chest pain * Shortness of breath * Tenderness or pain with redness and/swelling in the calf(s) of your leg 2-week visit: discuss feeding concerns, review control options and screen for anxiety/depression. 6-week visit for an annual exam. consultation services are available to all mothers and babies for the first year after delivery.? To make an appointment, please call [phone]. Activity Level: Activity as Tolerated Discharge Diet: Regular Follow Up Appointments: [facility] [Provider Group] Provider,Not a Local [Primary Care Provider, Family Practice] Forms: [employer] Info Instructions
[2025-09-21] MEDS: DOCUSATE SODIUM 100 MG CAPSULE PO (09:56)
== END 2025-09-21 13:05 | disposition home or self-care (01) | DRG 807 ==
LOC: OB OUT 03:56 → OB 18:48
PROVIDERS: Admitting Provider Advanced Practice Midwife; Visit Provider Obstetrics & Gynecology
DX: O26.893 Other specified pregnancy related conditions, third trimester (principal); Z37.0 Single live birth; O62.3 Precipitate labor; Z67.41 Type O blood, Rh negative; Z3A.38 38 weeks gestation of pregnancy
CPT/HCPCS: 36415; 85018; 85461; 86592; G0463; A9270; J2003; J2590; J2791; J3010

== ENCOUNTER 2025-09-22 14:37 | Emergency (ER) | payer OTHER, SELFPAY ==
[2025-09-22 14:51] VITALS: BP 111/74; PULSE 98; RESP 16; TEMP 36.4; O2SAT 100; BMI 29.9
--- NOTE | 2025-09-22 15:18 | ED.GENADULT ---
HPI - General Adult General Chief complaint: Chest Pain Stated complaint: 2 days , chest pain Time Seen by Provider: 09/22/25 15:07 History of Present Illness HPI narrative: Patient here with soreness chest pain starting last night. It is worse with deep breathing and movement. Denies any shortness of breath. She is two days . Otherwise healthy. States she is having pain with movement but pressure at rest. 30-year-old woman presenting to the emergency department with concern of upper chest pain that seemed to began last night. Seems to spread over the upper chest. There is some pleuritic component to it and worse with some movement. Two days . Underlying pressure in spite of movement or breathing. No fever. No notable cough. Trauma. She is . No unusual leg pain or swelling. Related Data Home Medications ?Medication ?Instructions ?Recorded ?Confirmed docosahexaenoic acid 200 mg 200 mg PO DAILY 02/28/25 09/20/25 capsule ( DHA) calcium carbonate (Tums) 200 mg PO BID 08/22/25 09/20/25 Previous Rx's ?Medication ?Instructions ?Recorded docusate sodium 100 mg capsule 100 mg PO DAILY #100 caps 09/21/25 ibuprofen 600 mg tablet 600 mg PO Q6H PRN #60 tabs 09/21/25 Allergies Allergy/AdvReac Type Severity Reaction Status Date / Time No Known Allergies Allergy Unknown Verified 09/15/25 12:49 Review of Systems Status of ROS: Reports: 6 or more systems reviewed and unremarkable except as noted in History and below [facility] Medical History Fundal height low for dates ?O26.849 - Uterine size-date discrepancy, unspecified trimester (ICD-10) Bacterial vaginosis ?N76.0 - Acute vaginitis (ICD-10) ?B96.89 - Other specified bacterial agents as the cause of diseases classified elsewhere (ICD-10) Vulvovaginal candidiasis ?B37.31 - Acute candidiasis of vulva and vagina (ICD-10) ?Z34.90 - Encounter for supervision of normal , unspecified, unspecified trimester (ICD-10) Rh negative state in antepartum period ?O26.899 - Other specified related conditions, unspecified trimester (ICD-10) ?Z67.91 - Unspecified blood type, rh negative (ICD-10) Bilateral impacted cerumen ?H61.23 - Impacted cerumen, bilateral (ICD-10) Perioral dermatitis ?L71.0 - Perioral dermatitis (ICD-10) Surgical History No history of previous surgery Status post normal vaginal delivery (2022) Family History Maternal Grandfather Stroke Aunt Thyroid cancer Breast cancer, Onset Age: 62 Mother Thyroid disease Uncle Diabetes Social History Narrative: ,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[place], 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, 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 [place] Lifetime nonsmoker Does not drink alcohol No drug use What is your current living situation?: I presently have a place to live Problems where you live: no known problems In the past 12 months, utilities in danger of being shut off: no In past 12 months, lack of transportation kept you from medical appts, meetings, work, or getting things needed for daily living: no In the past 12 mos, have been you worried that your food would run out before you had money to buy more?: never true In the past 12 mos, the food you bought just didn't last and you didn't have money to buy more?: never true Smoking Status: Never smoker How often does anyone, including family, friends and others, physically hurt you: never How often does anyone, including family, friends and others, insult or talk down to you: never How often does anyone, including family, friends and others, threaten you with harm: never How often does anyone, including family, friends and others, scream or curse at you: never Exam Narrative: Exam Narrative: Pleasant. Does seem little concerned but quite calm. Breathing easily. Lungs are clear. No supraclavicular crepitus. Not clearly reproducible to palpation in areas discomfort. Abdomen is soft. Heart in elevated rate and regular rhythm without murmur or gallop. Extremities are well perfused without edema. No calf pain to palpation. Const: Vital Signs, click to edit/add: Vital Signs - 24 hr 09/22/25 14:51 09/22/25 16:58 Temperature 97.6 F Pulse Rate [Pulse Oximeter] 98 91 Respiratory Rate 16 16 Blood Pressure [Ri ght Upper Arm] 111/74 113/77 Pulse Oximetry 100 100 Oxygen Delivery Me thod Room Air Room Air Documenting provider has reviewed patient's vital signs: yes Course Vital Signs Vital signs: Initial Vital Signs Temperature 97.6 F 09/22/25 14:51 Temperature Source Temporal Artery Scan 09/22/25 14:51 Pulse Rate 98 09/22/25 14:51 Respiratory Rate 16 09/22/25 14:51 Blood Pressure 111/74 09/22/25 14:51 Blood Pressure Mean 86 09/22/25 14:51 Blood Pressure Position Sitting 09/22/25 14:51 Pulse Oximetry 100 09/22/25 14:51 Oxygen Delivery Method Room Air 09/22/25 14:51 Vital Signs Temperature 97.6 F 09/22/25 14:51 Pulse Rate 98 09/22/25 14:51 Respiratory Rate 16 09/22/25 14:51 Blood Pressure 111/74 09/22/25 14:51 Pulse Oximetry 100 09/22/25 14:51 Oxygen Delivery Method Room Air 09/22/25 14:51 Temperature 97.6 F 09/22/25 14:51 Pulse Rate 91 09/22/25 16:58 Respiratory Rate 16 09/22/25 16:58 Blood Pressure 113/77 09/22/25 16:58 Pulse Oximetry 100 09/22/25 16:58 Oxygen Delivery Method Room Air 09/22/25 16:58 Medications Administered Medications: Discontinued Medications Generic Name Dose Route Start Last Admin Trade Name Freq PRN Reason Stop Dose Admin Sodium Chloride 500 mls @ 1,000 mls/hr 09/22/25 15:29 09/22/25 16:59 0.9 % Sodium Chloride 500 Ml IV 09/22/25 15:58 Infused .Q30M ONE Infusion Medical Decision Making MDM Narrative Medical decision making narrative: Mild symptoms. Does not seem to be heartburn. Does not seem to have symptoms consistent pneumonia. Certainly could be pulmonary embolus or amniotic fluid embolus. Costochondritis? Pleuritis? Atypical for pericarditis. Could simply be chest wall discomfort; new mother holding while might be contributing to discomfort. Will need to image though I think in this case. Difficult to separate out symptoms nor is this convincingly chest wall discomfort without clear reproducibility. Labs are reassuring with not unexpected elevation in D-dimer. Did review CT imaging. Radiology over-read below INDICATION: anterior pleuritic chest pain TECHNIQUE: CT chest PE was acquired with 95 cc Isovue 370 IV contrast. Axial maximum intensity projection reformatted images were performed on the scanner. COMPARISON: None. FINDINGS: Heart and vasculature: Contrast opacification of the pulmonary arterial tree is adequate. No sign of pulmonary embolism. Heart size is normal. Thoracic aorta and pulmonary artery are normal in caliber. Lungs and pleura: No pleural effusion or pneumothorax. No consolidation or suspicious pulmonary nodule. Lymph nodes/mediastinum: No mediastinal or hilar lymphadenopathy. Chest wall: No masses. Upper abdomen: Normal. Bones: Unremarkable for age. IMPRESSION: Unremarkable chest CTA. No evidence of pulmonary embolus. Discussed treatment options at this point. Think more likely this is chest wall discomfort. See patient discharge plan for further discussion I feel like this must be some degree of chest wall pain though we are unable to clearly reproduce it. The fact that you can make it worse with deep breathing could be that or there might be some pleuritis as well. Stay well-hydrated. Consider taking 400 - 600 mg of ibuprofen 3 times daily with a little food over the next 4-5 days. Be seen for pain persisting yet after a week or certainly if this becomes markedly worse or you are increasingly short of breath. Congratulations on your baby girl. Medical Records Medical records reviewed: Yes I reviewed the patient's medical records Lab Data Lab results reviewed: Yes I reviewed the patient's lab results Labs: Lab Results 09/22/25 Range/Units 15:50 WBC 7.96 (4.50-11.00) K/uL RBC 3.42 L (4.00-5.20) m/uL Hgb 11.1 L (12.0-16.0) gm/dL Hct 34.0 (33.0-51.0) % MCV 99 (80-100) fL MCH 33 (26-34) pg MCHC 33 (32-36) gm/dL RDW Coeff of [place] 14.0 (11.5-15.5) % Plt Count 219 (140-440) K/uL Neut % (Auto) 65.5 (42.0-72.0) % Lymph % (Auto) 24.1 (20-44) % [place] % (Auto) 6.4 (0.0-11.0) % Eos % (Auto) 2.4 (0.0-7.0) % Baso % (Auto) 0.3 (0.0-3.0) % Neut # (Auto) 5.22 (1.7-7.0) K/uL Lymph # (Auto) 1.92 (0.90-2.90) K/uL [place] # (Auto) 0.50 (0.00-0.90) K/UL Eos # (Auto) 0.19 (0.00-0.50) K/uL Baso # (Auto) 0.02 (0.00-0.30) K/uL Abs Immat Gran (auto) 0.10 (0.00-0.30) K/uL Imm/Tot Granulo (auto) 1.3 % D-Dimer Quant (PE/DVT) 1.07 H (0.00-0.50) ug/ml Sodium 133 L (135-149) mmol/L Potassium 3.7 (3.6-5.1) mmol/L Chloride 103 (96-114) mmol/L Carbon Dioxide 26 (20-32) mmol/L Anion Gap 4 L (7-15) mEq/L BUN 10 (5-24) mg/dL Creatinine 0.6 (0.5-1.5) mg/dL Estimated Creat Clear 120.54 Estimated GFR 125 ml/min Glucose 82 (60-115) mg/dL Calcium 8.9 (8.4-10.6) mg/dL ECG Data Attestation: I personally reviewed and interpreted this ECG as follows: (Normal sinus rhythm. Rate of 90. without ischemic changes) Discharge Plan Discharge Clinical Impression: Atypical chest pain Patient Disposition: Home, Self-Care Condition: Improved Additional Instructions: I feel like this must be some degree of chest wall pain though we are unable to clearly reproduce it. The fact that you can make it worse with deep breathing could be that or there might be some pleuritis as well. Stay well-hydrated. Consider taking 400 - 600 mg of ibuprofen 3 times daily with a little food over the next 4-5 days. Be seen for pain persisting yet after a week or certainly if this becomes markedly worse or you are increasingly short of breath. Congratulations on your baby girl. Prescriptions: No Action DHA 200 mg capsule 200 mg PO DAILY calcium carbonate [Tums] 200 mg calcium (500 mg) tablet,chewable 200 mg PO BID docusate sodium 100 mg Capsule 100 mg PO DAILY Qty: 100 0RF Rx Instructions: Take 1-2 tablets daily as needed for constipation. ibuprofen 600 mg Tablet 600 mg PO Q6H PRNQty: 60 0RF Follow Up/Referrals: Provider,Not a Local [Primary Care Provider, Family Practice] Stand Alone Forms: [facility] Info Instructions
--- NOTE | 2025-09-22 15:29 | CRLHL7_ITS ---
For Patients: As a result of the Century Cures Act, medical imaging exams and procedure reports are released immediately into your electronic medical record. You may view this report before your referring provider. If you have questions, please contact your health care provider. INDICATION: anterior pleuritic chest pain TECHNIQUE: CT chest PE was acquired with 95 cc Isovue 370 IV contrast. Axial maximum intensity projection reformatted images were performed on the scanner. COMPARISON: None. FINDINGS: Heart and vasculature: Contrast opacification of the pulmonary arterial tree is adequate. No sign of pulmonary embolism. Heart size is normal. Thoracic aorta and pulmonary artery are normal in caliber. Lungs and pleura: No pleural effusion or pneumothorax. No consolidation or suspicious pulmonary nodule. Lymph nodes/mediastinum: No mediastinal or hilar lymphadenopathy. Chest wall: No masses. Upper abdomen: Normal. Bones: Unremarkable for age. IMPRESSION: Unremarkable chest CTA. No evidence of pulmonary embolus. Please note that all CT scans at this facility use dose modulation, iterative reconstruction, and/or weight-based dosing when appropriate to reduce radiation dose to as low as reasonably achievable. Dictated by Sid Galicia MD @ 09/22/2025 4:37:21 PM (Electronically Signed)
[2025-09-22 16:03] LABS: Hematocrit* 34.0 % (33.0-51.0); Hemoglobin* 11.1 gm/dL (12.0-16.0); Immature Granulocytes Abs Auto 0.10 K/uL (0.00-0.30); Immature Granulocytes Pct Auto 1.3 %; Lymphocytes Absolute Auto 1.92 K/uL (0.90-2.90); Mean Corpuscular HGB Conc 33 gm/dL (32-36); Mean Corpuscular Hemoglobin 33 pg (26-34); Mean Corpuscular Volume 99 fL (80-100); RDW Coefficient of Variation % 14.0 % (11.5-15.5); Red Blood Count* 3.42 m/uL (4.00-5.20); White Blood Count* 7.96 K/uL (4.50-11.00)
[2025-09-22 16:07] LABS: Slide Review Reflex No
[2025-09-22 16:17] LABS: Chloride* 103 mmol/L (96-114); Potassium* 3.7 mmol/L (3.6-5.1); Sodium* 133 mmol/L (135-149)
[2025-09-22] MEDS: 0.9 % SODIUM CHLORIDE 500 ML 500 ML 1000 ML IV (16:19)
[2025-09-22 16:20] LABS: Blood Urea Nitrogen* 10 mg/dL (5-24); Creatinine* 0.6 mg/dL (0.5-1.5); Est. Creatinine Clearance* 120.54; Estimated Glomerular Filt Rate 125 ml/min
[2025-09-22 16:21] LABS: Anion Gap 4 mEq/L (7-15); Calcium* 8.9 mg/dL (8.4-10.6); Carbon Dioxide* 26 mmol/L (20-32); Glucose* 82 mg/dL (60-115)
[2025-09-22 16:22] LABS: D Dimer Quantitative* 1.07 ug/ml (0.00-0.50)
[2025-09-22 16:58] VITALS: BP 113/77; PULSE 91; RESP 16; O2SAT 100
== END 2025-09-22 17:21 | disposition home or self-care (01) ==
PROVIDERS: Emergency Provider Family Medicine
DX: O99.893 Other specified diseases and conditions complicating puerperium (principal); R07.89 Other chest pain
CPT/HCPCS: 36415; 71275; 80048; 85025; 85379; 93005; 99284; 99285; J7030; Q9967

== ENCOUNTER 2025-10-02 11:24 | Outpatient (CLI) | payer OTHER, SELFPAY ==
--- NOTE | 2025-10-02 12:21 | W.PM.LAC.MC ---
Consult Note - Mom Date of Visit Date of visit: 10/02/25 Reason for consultation: Assistance Needed Visit Code: Visit Patient's Information Phone number: [phone] : 2 Para: 2 Allergies No Known Allergies Allergy (Unknown, Verified 09/15/25 12:49) Mother's Medical History: Medical History (Updated 09/22/25 @ 17:08 by Hardy Gallagher MD) Fundal height low for dates ?O26.849 - Uterine size-date discrepancy, unspecified trimester (ICD-10) Bacterial vaginosis ?N76.0 - Acute vaginitis (ICD-10) ?B96.89 - Other specified bacterial agents as the cause of diseases classified elsewhere (ICD-10) Vulvovaginal candidiasis ?B37.31 - Acute candidiasis of vulva and vagina (ICD-10) ?Z34.90 - Encounter for supervision of normal , unspecified, unspecified trimester (ICD-10) Rh negative state in antepartum period ?O26.899 - Other specified related conditions, unspecified trimester (ICD-10) ?Z67.91 - Unspecified blood type, rh negative (ICD-10) Bilateral impacted cerumen ?H61.23 - Impacted cerumen, bilateral (ICD-10) Perioral dermatitis ?L71.0 - Perioral dermatitis (ICD-10) Delivery Information Delivery type: Vaginal Gestational Age: 38+2 Gestational Weight For Age: AGA Weight: 2.765 kg Discharge Weight: 2.53 kg Percentage weight loss: 8.5 Baby's Information Baby's Age at Visit: 12 days Baby's Provider or Clinic: [facility] Jaundice: No Past Experience Past Experience: Yes Current Frequency of Day Feedings: every 2 hrs Frequency of Night Feedings: every 3 hrs Both Breasts: Yes Suck: strong Latch: shallow, clicky Length of Time: about 10 min on 1st side, then 5-10 on 2nd side Goals: at least 1 uear Pumping Pumping: Yes Quantity Pumped: 3-4 oz after 2-3 feedings/day Supplementing EBM Supplement: No Formula Supplement: No Baby Elimination Number of Wet Diapers a Day: ea feeding Number of BM a Day: 6+/day; yellow, seedy Breast/Nipple Condition Breast Information: Breasts are symmetrical with rounded lower quadrants, intramammary distance is less than 1.5 inches. No erythema. Nipples are supple, everted prior to feeding. Breast Shape: Round Engorgement: No Maternal Nipple Condition - Left: Common Nipple Maternal Nipple Condition - Right: Common Nipple Sore Nipples: No Baby Assessment Skin: Normal Tongue/frenulum: Restricted mid-range (possibly, hard to assess due to small mouth and unhappy baby with clenched lips) Palate: Average Lips: Relaxed and Symmetrical Jaw Alignment: Symmetrical Mucosa: [place], moist Onsite Observation Pre-Feed weight: 2.826 kg Post-Feed weight: 2.864 kg Milk Transferred (mL): 38 Position: Cross cradle Attachment/latch-on achieved: Easily Suck pattern: Suck burst and normal rest Swallow: Audible, consistent and Gulping Behavior following feed: Relaxed, sleepy Pre-Nursing Left Nipple: Within Normal Limits Pre-Nursing Right Nipple: Within Normal Limits Post-Nursing Left Nipple: Creased/Beveled Assessments/Interventions Assessments/Interventions: Babe latched to mom's LEFT breast, latched very shallow and clicking sounds heard almost immediately; worked with mom to relatch more deeply; can get a deep latch without clicking and then baby moves more toward the end of the nipple and the clicking sounds return. Mom does not c/o pain and baby still drinking large volumes of milk. And stayed nursing for 6 minutes. Transferred 38 ml of milk Declined nursing longer on either breast. Discussed clicking sound related to shallow latch; likely a deeper latch will allow more breast tissue in baby's mouth to decrease air space and subsequent clicking sounds. also discussed baby may be having a hard time with a deeper latch due to large milk volume but important to continue to work towards this to maintain supply as mom's milk supply balances out. Baby currently feeding every 2 hours during the day; given excellent weight gain, ok to let her go up to 3 hrs during the day if desired or hard to wake for feedings. If clicking sounds continue and/or mom has pain with nursing, should reassess for posterior tongue tie. Education provided: Asymmetric latch technique for wide/deep latch to increase milk, Transfer for baby and increase comfort for mom, Supply/demand nature of milk supply, Need for frequent stimulation/milk removal, Pumping for milk management and Milk collection, storage Follow-Up Suggested follow up: Appointment as needed Time Spent Time spent with patient (min): 45 Meds Home Medications and Allergies Home Medications ?Medication ?Instructions ?Recorded ?Confirmed ?Type docosahexaenoic acid 200 mg 200 mg PO DAILY 02/28/25 09/20/25 History capsule ( DHA) calcium carbonate (Tums) 200 mg PO BID 08/22/25 09/20/25 History docusate sodium 100 mg capsule 100 mg PO DAILY #100 caps 09/21/25 Rx ibuprofen 600 mg tablet 600 mg PO Q6H PRN #60 tabs 09/21/25 Rx Allergies Allergy/AdvReac Type Severity Reaction Status Date / Time No Known Allergies Allergy Unknown Verified 09/15/25 12:49
== END 2025-10-02 11:25 | disposition home or self-care (01) ==
LOC: OB LAC 11:24
PROVIDERS: Visit Provider Obstetrics & Gynecology
DX: Z39.1 Encounter for care and examination of lactating mother (principal)
CPT/HCPCS: G0463